=== PATIENT | female | born 1945 | race Caucasian/White ===

== ENCOUNTER 2017-06-11 01:13 | Emergency (ER) | payer OTHER ==
--- NOTE | 2017-06-11 02:05 | EMERGENCY ROOM VISIT NOTE ---
History Report prepared by Ranibe: Minerva Vasquez Under the Supervision of: Dr. Elizabeth Lazo D.O. First contact with patient: 01:42 Chief Complaint: OTHER COMPLAINT Stated Complaint: CAST REPLACEMENT History of Present Illness The patient is a 71 year old female who presents to the Emergency Room with complaints of taking her right wrist cast off prior to arrival. The patient lives in [facility] and was found by staff with her right wrist cast removed. The patient had a cast for a fractured right distal radius. Dr. Mathews- Orthopedics previously saw the patient at [facility] and put the original cast on. The patient is nonverbal. Source of History: patient Onset: prior to arrival Position: wrist (right) Review of Systems ROS limited secondary to patient's nonverbal condition. Past Medical & Surgical limited secondary to patient's nonverbal condition. Family History limited secondary to patient's nonverbal condition. Social History Smoking Status: Unknown if Ever Smoked Housing Status: senior living limited secondary to patient's nonverbal condition. Current/Historical Medications Scheduled Acetaminophen (Tylenol), 650 MG PO TID Cholecalciferol (Vitamin D3), 2,000 UNIT PO DAILY Emollient (Lubriderm), 1 APPLN TOP QD Levothyroxine Sodium (Levothyroxine Sodium), 50 MCG PO DAILY Oxcarbazepine (Trileptal), 300 MG PO BID Quetiapine Fumarate (Seroquel), 100 MG PO HS Quetiapine Fumarate (Seroquel), 50 MG PO DAILY Scheduled PRN Acetaminophen (Tylenol), 650 MG PO Q4 PRN for Mild Pain Acetaminophen (Tylenol), 650 MG PO Q6 PRN for temp > 101 Tramadol (Ultram), 50 MG PO Q8H PRN for Pain Allergies Coded Allergies: No Known Allergies (Unverified , 06/11/17) Physical Exam Vital Signs Date Time Temp Pulse Resp B/P (MAP) Pulse Ox O2 Delivery O2 Flow Rate FiO2 06/11/17 05:31 78 18 105/54 95 Room Air 06/11/17 03:13 85 22 124/71 93 Room Air 06/11/17 01:19 36.8 85 18 118/71 98 Room Air Physical Exam Right upper extremities: obvious deformity of right wrist, ulceration over medial right wrist, good capillary refill of fingers and normal radial pulses. Medical Decision & Procedures ER Provider Diagnostic Interpretation: Radiology results as stated below per my review and the radiologist's interpretation: Wrist X-Ray Significantly displaced distal radial fracture. ED Course 0150: Past medical records reviewed. The patient was evaluated in room A10. A complete history and physical exam was performed. The patient went for plain films of the right wrist. 0246: I discussed the case with Dr. Mathews-Orthopedics. He suggested we apply padding over ulceration and apply orthoglass splinting material. He will see the patient later this week. 0358:Orthoglass splint in place, normal capillary refill post splint application. A mitt was put on the patient's other hand. 0420: : Upon reevaluation, the patient is resting comfortably. The patient was discharged back to the senior living Medical Decision The patient is a 71 year old female who presents to the Emergency Room with complaints of taking her cast off prior to arrival. The patient has a known closed right wrist fracture. unfortunately, she had removed her cast. Staff from the senior living sent her here for evaluation. The wrist is obviously deformed. X-ray confirms the distal radius fracture that was seen previously. She was placed in Ortho-Glass splinting material and a minute was applied and the other hand to prevent her from removing this splint. Medication Reconcilliation Current Medication List: was personally reviewed by me Blood Pressure Screening Patient's blood pressure: Normal blood pressure Impression Primary Impression: Fracture of right distal radius Scribe Attestation The scribe's documentation has been prepared under my direction and personally reviewed by me in its entirety. I confirm that the note above accurately reflects all work, treatment, procedures, and medical decision making performed by me. Departure Information Dispostion Home / Self-Care Forms HOME CARE DOCUMENTATION FORM, IMPORTANT VISIT INFORMATION, WORK / SCHOOL INSTRUCTIONS Patient Instructions [facility] [place] Additional Instructions Padding placed over wrist ulceration. Fiberglass splint placed. Please follow up with Dr. Mathews on Sunday for definitive care Problem Qualifiers Primary Impression: Fracture of right distal radius Encounter type: subsequent encounter Fracture type: closed Fracture morphology: unspecified fracture morphology Fracture healing: with nonunion Qualified Codes: S52.501K - Unspecified fracture of the lower end of right radius, subsequent encounter for closed fracture with nonunion
[2017-06-11] MEDS ORDERED: CHOL2000 PO (02:41)
[2017-06-11] MEDS ORDERED: LEVO50TA6 PO (02:42)
[2017-06-11] MEDS ORDERED: QUET1TAB34 PO (02:42)
[2017-06-11] MEDS ORDERED: ACET-1311 PO ×2 (02:45→02:50)
[2017-06-11] MEDS ORDERED: OXCA300T PO (02:45)
[2017-06-11] MEDS ORDERED: QUET1TAB32 PO (02:45)
[2017-06-11] MEDS ORDERED: TRAM-10 PO (02:46)
[2017-06-11] MEDS ORDERED: ACET325T95 PO (02:48)
[2017-06-11] MEDS ORDERED: EMOL-19 TOP (02:51)
--- NOTE | 2017-06-11 06:36 | DIAGNOSTIC IMAGING REPORT ---
RIGHT WRIST 2 VIEW HISTORY: 71 years-old Female Eval right distal radus FX Right acute deformity of the right wrist with unresponsive patient. COMPARISON: None available TECHNIQUE: 2 views of the right wrist. FINDINGS: The patient was reportedly not cooperative therefore an oblique view was not obtained. There is an acute comminuted impacted, displaced and mildly angulated fracture of the distal radial metaphysis with 11 mm lateral and 9 mm dorsal displacement. There is mild apex medial angulation of approximately 13 degrees. Fracture lines extend into the radiocarpal and distal radioulnar joints. Subcortical cystic changes are seen involving the scaphoid. Moderate soft tissue swelling is noted about the wrist. Bones are mildly demineralized. IMPRESSION: 1. Moderately limited study as above with comminuted displaced and mildly angulated intra-articular distal radial fracture. 2. Background osteopenia. The above report was generated using voice recognition software. It may contain grammatical, syntax or spelling errors. Electronically signed by: Toney Norman M.D. 06/11/2017 6:35 AM Dictated Date/Time: 06/11/2017 6:31 AM
[2017-06-11 08:00] VITALS: BP 115/70; PULSE 78; TEMP 36.8; O2SAT 95
== END 2017-06-11 08:16 | disposition home or self-care (01) ==
LOC: C.EDA 01:16
DX: S52.501K Unspecified fracture of the lower end of right radius, subsequent encounter for closed fracture with nonunion (principal); X58.XXXD Exposure to other specified factors, subsequent encounter

== ENCOUNTER → 2017-06-30 | Outpatient (CLI) | payer OTHER ==
[~2017-06-30] MED LIST: ACET-1311 PO; ACET325T95 PO; CHOL2000 PO; EMOL-19 TOP; LEVO50TA6 PO; OXCA300T PO; QUET1TAB32 PO; QUET1TAB34 PO; TRAM-10 PO
== END ==
LOC: C.LABUPHEI 09:09 → EDSTATUS 09:09
PROVIDERS: ATTEND Nurse Practitioner Family
DX: N17.9 Acute kidney failure, unspecified (principal)

== ENCOUNTER → 2017-07-05 | Outpatient (CLI) | payer OTHER ==
[2017-07-05 08:45] LABS: BASO % 1.1 %; BASO ABS # 0.08 K/uL (0-0.2); COMPLETE YES; EOS % 6.5 %; HEMATOCRIT 41.6 % (37-47); IG% 0.3 %; LYMPH % 16.3 %; LYMPH ABS # 1.16 K/uL (1.2-3.4); MEAN CELL VOLUME 90.4 fL (80-100); MEAN CORPUSCULAR HEMOGLOBIN 28.3 pg (25-34); MEAN CORPUSCULAR HGB CONC 31.3 g/dl (32-36); MEAN PLATELET VOLUME 10.7 fL (7.4-10.4); MONO % 12.1 %; NEUT % 63.7 %; PLATELET COUNT 331 K/uL (130-400)
[2017-07-05 08:55] LABS: ALT/SGPT 28 U/L (12-78); BLOOD UREA NITROGEN 26 mg/dl (7-18); BUN/CREATININE RATIO 29.2 (10-20); CALCIUM 9.4 mg/dl (8.5-10.1); CARBON DIOXIDE 25 mmol/L (21-32); CHLORIDE 111 mmol/L (98-107); GLUCOSE 90 mg/dl (70-99); POTASSIUM 3.8 mmol/L (3.5-5.1); SODIUM 144 mmol/L (136-145)
[2017-07-05 09:06] LABS: ALB/GLOB RATIO 0.8 (0.9-2); ALKALINE PHOSPHATASE 107 U/L (45-117); AST/SGOT 15 U/L (15-37); THYROID STIMULATING HORMONE 0.373 uIu/ml (0.300-4.500)
--- NOTE | 2017-07-16 07:45 | CODING QUERY MEDICAL NECESSITY ---
SUPPORTING DIAGNOSIS NEEDED Caroline DOLL, A supporting diagnosis is required for the test/procedure performed on this patient in order for us to be reimbursed by the patient's insurance. Please provide a supporting diagnosis for the following test/procedure listed below next to the test name along with your signature. *If there is no additional diagnosis for this patient that would support the following test/procedure please document that below next to the test/procedure. Test(s)/Procedure(s) that require a supporting diagnosis: * ([id number]) VITAMIN D ASSAY DIAGNOSIS: DATE OF SERVICE: 07/05/17 Provider Signature: Date: Thank you Reynaldo [facility] Information Management Once completed, please kindly fax back to [phone] For questions please call [phone]
== END ==
LOC: C.LABUPHEI 08:17 → EDSTATUS 07-11 11:10
PROVIDERS: ATTEND Nurse Practitioner Family
DX: E56.8 Deficiency of other vitamins (principal); E03.9 Hypothyroidism, unspecified; M62.81 Muscle weakness (generalized); E56.9 Vitamin deficiency, unspecified

== ENCOUNTER → 2017-07-07 | Outpatient (CLI) | payer OTHER | LOC: C.LABUPHEI 06:25 | PROVIDERS: ATTEND Nurse Practitioner Family | DX: N17.9 Acute kidney failure, unspecified (principal) ==

== ENCOUNTER → 2018-04-30 | Outpatient (CLI) | payer OTHER ==
[~2018-04-30] MED LIST changes: -ACET325T95 PO; +TYLOTC325 PO
[2018-04-30 09:56] LABS: BASO ABS # 0.07 K/uL (0-0.2); EOS % 4.9 %; EOS ABS # 0.33 K/uL (0-0.5); HEMATOCRIT 38.5 % (37-47); HEMOGLOBIN 12.9 g/dL (12.0-16.0); IG# 0.02 K/uL (0.00-0.02); LYMPH % 18.5 %; LYMPH ABS # 1.25 K/uL (1.2-3.4); MEAN CELL VOLUME 86.7 fL (80-100); MEAN CORPUSCULAR HEMOGLOBIN 29.1 pg (25-34); MEAN CORPUSCULAR HGB CONC 33.5 g/dl (32-36); MEAN PLATELET VOLUME 10.5 fL (7.4-10.4); MONO % 11.4 %; MONO ABS # 0.77 K/uL (0.11-0.59); NEUT % 63.9 %; NEUT ABS # 4.32 K/uL (1.4-6.5); PLATELET COUNT 334 K/uL (130-400); RED CELL DISTRIBUTION WIDTH CV 14.4 % (11.5-14.5); RED CELL DISTRIBUTION WIDTH SD 45.4 fL (36.4-46.3); WHITE BLOOD COUNT 6.76 K/uL (4.8-10.8)
[2018-04-30 10:18] LABS: ALBUMIN 2.9 gm/dl (3.4-5.0); ALKALINE PHOSPHATASE 101 U/L (45-117); ALT/SGPT 25 U/L (12-78); AST/SGOT 17 U/L (15-37); BLOOD UREA NITROGEN 19 mg/dl (7-18); CALCIUM 8.4 mg/dl (8.5-10.1); CARBON DIOXIDE 25 mmol/L (21-32); CREATININE 0.84 mg/dl (0.60-1.20); GLUCOSE 75 mg/dl (70-99); POTASSIUM 4.1 mmol/L (3.5-5.1); SODIUM 133 mmol/L (136-145); TOTAL PROTEIN 6.3 gm/dl (6.4-8.2)
== END ==
LOC: C.LABUPHEI 09:39
PROVIDERS: ATTEND Nurse Practitioner Family
DX: E55.9 Vitamin D deficiency, unspecified (principal); N17.9 Acute kidney failure, unspecified; E03.9 Hypothyroidism, unspecified